=== PATIENT | female | born 1990 | race Caucasian/White ===

== ENCOUNTER 2016-10-21 19:07 | Emergency (ER) | payer MEDICAID ==
[2016-10-21 19:15] VITALS: TEMP 98.1
--- NOTE | 2016-10-21 19:59 | EDPHY ---
H & P Time Seen by Provider: 10/21/16 19:24 HPI/ROS: CHIEF COMPLAINT: Abdominal pain HISTORY OF PRESENT ILLNESS: 26-year-old female presents to the emergency department with right-sided abdominal pain for several weeks. The patient states her last menstrual period was 07/17/2016. [facility] She has had no vaginal bleeding or spotting. She is 5 para 2 AB 2. No back pain. No urinary symptoms. No chest pain or difficulty breathing. No headache. No reported trauma. REVIEW OF SYSTEMS: Constitutional: No fever, no chills. Eyes: No double or blurry vision. ENT: No sore throat. Respiratory: No cough, no shortness of breath. Cardiac: No chest pain. Gastrointestinal: Abdominal pain as above. No vomiting or diarrhea Genitourinary: No dysuria. Musculoskeletal: No neck or back pain. Skin: No rashes. Neurological: No headache. Past Medical/Surgical History: [id number] Social History: Single Smoking Status: Light smoker Physical Exam: General Appearance: Alert, no distress. Eyes: Pupils equal and round. Extraocular motions are all intact. ENT: Mouth: Mucous membranes moist. Respiratory: No wheezing, rhonchi, or rales, lungs are clear to auscultation. Cardiovascular: Regular rate and rhythm. Gastrointestinal: Abdomen is soft. She has mild tenderness with palpation in the suprapubic area. No rebound, guarding or masses noted. Gravid uterus palpated. No CVA tenderness bilaterally. Neurological: Alert and oriented x 3, cranial nerves II through XII grossly intact Skin: Warm and dry, no rashes. Musculoskeletal: Nontender to palpate along the cervical, thoracic or lumbar spine. Neck is supple. Extremities: Full range of motion and no peripheral edema. Psychiatric: Patient is oriented X 3, there is no agitation. Constitutional: Initial Vital Signs Temperature (C) 36.7 C 10/21/16 19:11 Heart Rate 90 10/21/16 19:11 Respiratory Rate 16 10/21/16 19:11 Blood Pressure 131/82 H 10/21/16 19:11 O2 Sat (%) 98 10/21/16 19:11 O2 Delivery Mode Room Air Allergies/Adverse Reactions: No Known Allergies Allergy (Unverified 02/15/15 19:37) Home Medications: Medication Instructions Recorded NK [No Known Home Meds] 10/21/16 Medical Decision Making - Diagnostics Imaging Results: Imaging Impressions Abdomen Ultrasound 10/21/16 19:56 Impression: Appendix not identified. Findings and recommendations discussed with Emergency Department physician, OWEN JEREZ at 2050 hour, 10/21/2016. Final report concurs with initial preliminary interpretation. Obstetrics Ultrasound 10/21/16 19:56 Impression: 1. Single viable intrauterine gestation with size consistent with LMP dates. 2. FHR = 142 BPM. 3. Recommend followup anatomy scan between 19 and 20 weeks gestation. 4. No ovarian torsion or adnexal masses. Findings and recommendations discussed with Emergency Department physician, OWEN JEREZ at 2050 hour, 10/21/2016. Final report concurs with initial preliminary interpretation. Imaging: Discussed imaging studies w/ scallop raker Radiologist ED Course/Re-evaluation: Past records were reviewed and the patient's blood type is O-positive. This test was not repeated in the emergency department. Laboratory studies are within normal limits. Quantitative HCG is over 39,000. Pelvic ultrasound reveals a 14 week 1 day IUP with a heart rate of 142. Unable to visualize appendix. Patient was given OBGYN referral. She was encouraged to stop smoking and take vitamins. She was instructed to return to the emergency department if she developed any other change in symptoms or if she felt worse in any way. Differential Diagnosis: Including but not limited intrauterine , ectopic , acute appendicitis, urinary tract infection, pyelonephritis, ovarian cyst, ovarian torsion - Data Points Laboratory Results: Laboratory Results 10/21/16 19:30 10/21/16 19:30 10/21/16 10/21/16 10/21/16 20:06 19:30 19:30 WBC 8.08 10^3/uL 10^3/uL (3.80-9.50) RBC 4.19 10^6/uL 10^6/uL (4.18-5.33) Hgb 13.1 g/dL g/dL (12.6-16.3) Hct 37.3 % L % (38.0-47.0) MCV 89.0 fL fL (81.5-99.8) MCH 31.3 pg pg (27.9-34.1) MCHC 35.1 g/dL g/dL (32.4-36.7) RDW 12.1 % % (11.5-15.2) Plt Count 241 10^3/uL 10^3/uL (150-400) MPV 9.8 fL fL (8.7-11.7) Neut % (Auto) 63.7 % % (39.3-74.2) Lymph % (Auto) 28.3 % % (15.0-45.0) [place] % (Auto) 5.4 % % (4.5-13.0) Eos % (Auto) 2.0 % % (0.6-7.6) Baso % (Auto) 0.4 % % (0.3-1.7) Nucleat RBC Rel Count 0.0 % % (0.0-0.2) Absolute Neuts (auto) 5.14 10^3/uL 10^3/uL (1.70-6.50) Absolute Lymphs (auto) 2.29 10^3/uL 10^3/uL (1.00-3.00) Absolute Monos (auto) 0.44 10^3/uL 10^3/uL (0.30-0.80) Absolute Eos (auto) 0.16 10^3/uL 10^3/uL (0.03-0.40) Absolute Basos (auto) 0.03 10^3/uL 10^3/uL (0.02-0.10) Absolute Nucleated RBC 0.00 10^3/uL 10^3/uL (0-0.01) Immature Gran % 0.2 % % (0.0-1.1) Immature Gran # 0.02 10^3/uL 10^3/uL (0.00-0.10) Sodium 136 mEq/L mEq/L (134-144) Potassium 3.2 mEq/L L mEq/L (3.5-5.2) Chloride 107 mEq/L mEq/L (97-110) Carbon Dioxide 18 mEq/l L mEq/l (22-31) Anion Gap 11 mEq/L mEq/L (8-16) BUN 7 mg/dL mg/dL (7-23) Creatinine 0.4 mg/dL L mg/dL (0.6-1.0) Estimated GFR > 60 Glucose 90 mg/dL mg/dL (70-100) Calcium 9.4 mg/dL mg/dL (8.5-10.4) Beta HCG, Quant 34892.00 mIU/mL H mIU/mL (0.00-4.83) Urine Color YELLOW Urine Appearance MODERATELY TURBID Urine pH 6.0 (5.0-7.5) Ur Specific [place] 1.017 (1.002-1.030) Urine Protein NEGATIVE (NEGATIVE) Urine Ketones NEGATIVE (NEGATIVE) Urine Blood NEGATIVE (NEGATIVE) Urine Nitrate NEGATIVE (NEGATIVE) Urine Bilirubin NEGATIVE (NEGATIVE) Urine Urobilinogen NEGATIVE EU EU (0.2-1.0) Ur Leukocyte Esterase NEGATIVE (NEGATIVE) Urine RBC 1-3 /hpf /hpf (0-3) Urine WBC 1-3 /hpf /hpf (0-3) Ur Epithelial Cells TRACE /lpf /lpf (NONE-1+) Urine Bacteria 1+ /hpf H /hpf (NONE SEEN) Urine Mucus TRACE /lpf /lpf (NONE-1+) Urine Glucose NEGATIVE (NEGATIVE) Departure - Departure Disposition: Home, Routine, Self-Care Clinical Impression: Intrauterine Condition: Good Instructions: (ED) Additional Instructions: Stop smoking. You should be taking vitamins daily. Follow up with WEB PAGE DEVELOPER as discussed. Abdominal Pain: Return to the Emergency Department immediately for increasing pain, fever, vomiting, or if not completely better in 8-12 hours. Referrals: Analisa King DO [Doctor of Osteopathy] - 2-3 days, call for appt. (OBGYN on- call)
[2016-10-21 20:09] LABS: % IMMATURE GRANULYOCYTES 0.2 % (0.0-1.1); ABSOLUTE IMMATURE GRANULOCYTES 0.02 10^3/uL (0.00-0.10); ADD DIFF? NO; ADD MORPH? NO; ADD SCAN? NO; ATYPICAL LYMPHOCYTE FLAG 0 (0-99); FRAGMENT RBC FLAG 0 (0-99); HEMATOCRIT 37.3 % (38.0-47.0); HEMOGLOBIN 13.1 g/dL (12.6-16.3); LEFT SHIFT FLG 0 (0-99); LIPEMIA HEMOLYSIS FLAG 90 (0-99); MEAN CELL HEMOGLOBIN 31.3 pg (27.9-34.1); MEAN CELL HEMOGLOBIN CONCENTR. 35.1 g/dL (32.4-36.7); MEAN PLATELET VOLUME 9.8 fL (8.7-11.7); PLATELET CLUMPS FLAG 0 (0-99); PLATELET COUNT 241 10^3/uL (150-400); RED BLOOD CELL COUNT 4.19 10^6/uL (4.18-5.33); RED CELL DISTRIBUTION WIDTH 12.1 % (11.5-15.2)
[2016-10-21 20:16] LABS: ANION GAP 11 mEq/L (8-16); CALCIUM 9.4 mg/dL (8.5-10.4); CARBON DIOXIDE 18 mEq/l (22-31); CHLORIDE 107 mEq/L (97-110); CREATININE 0.4 mg/dL (0.6-1.0); GLOMERULAR FILTRATION RATE > 60; GLUCOSE 90 mg/dL (70-100); POTASSIUM 3.2 mEq/L (3.5-5.2); SODIUM 136 mEq/L (134-144)
[2016-10-21 20:21] LABS: COLOR YELLOW; LEUKOCYTE ESTERASE,URINE NEGATIVE (NEGATIVE); NITRITE,URINE NEGATIVE (NEGATIVE)
[2016-10-21 20:26] LABS: BACTERIA 1+ /hpf (NONE SEEN); MUCUS TRACE /lpf (NONE-1+)
[2016-10-21 21:40] VITALS: BP 110/62; PULSE 63; RESP 14; O2SAT 96
== END 2016-10-21 21:32 | disposition home or self-care (01) ==
DX: O26.892 Other specified pregnancy related conditions, second trimester (principal); R10.9 Unspecified abdominal pain; F17.200 Nicotine dependence, unspecified, uncomplicated; Z3A.14 14 weeks gestation of pregnancy

== ENCOUNTER → 2017-02-05 | Outpatient (CLI) | payer MEDICAID | LOC: FIMAGING 13:26 | PROVIDERS: ATTEND Obstetrics & Gynecology | DX: O09.293 Supervision of pregnancy with other poor reproductive or obstetric history, third trimester (principal); Z3A.28 28 weeks gestation of pregnancy ==

== ENCOUNTER 2017-03-06 16:12 | Observation (INO) | payer MEDICAID ==
--- NOTE | 2017-03-06 19:54 | GHP ---
[f rep st] HISTORY AND PHYSICAL DATE OF ADMISSION: 03/06/2017 ADMITTING DIAGNOSIS: 1. Intrauterine at 32 weeks and 4 days. 2. contractions. HISTORY OF PRESENT ILLNESS: The patient is a 26-year-old, 6, para 2-1-2 -2, at 32 weeks and 4 days by last menstrual period 07/20/2016, with estimated due date 04/27/2017 and c/w 13-week scan performed during ED visit at [facility]. The patient presents to the office today for NST. NST is nonreactive with only 1 acceleration, no decels, moderate variability. On toco, she is lenore every 3-4 minutes and states pain is a 6 to 7/10 on pain scale. The patient denies any leakage of fluid or vaginal bleeding. States good movement. The patient denies any abnormal discharge, and feels that she is well hydrated. The patient was sent over to Labor and Delivery to rule out contractions. The patient has care at [facility]. is complicated by late care at 22 weeks and 5 days. The patient has a history of a delivery at 35 weeks secondary to PPROM. She also has a history of intrauterine demise in 2013 secondary to cord accident. She declined 17-P injections for this . She declined all genetic screening. Positive tobacco use during the . Down to 5-6 cigarettes per day. She does live an hour away at 8700 feet. Patient has a history of hypothyroidism, currently on no meds. The patient did have a recent visit with [facility] on 02/05 and fetus was measuring appropriate for gestational age with estimated weight 88th percentile, 1470 g. Cervix was 3.2 cm, transvaginally, with a MVP of 5.8 cm and a posterior placenta; no previa. PAST OB HISTORY: In 2009, she had a 1st trimester missed AB, treated with D and C. In 2010, she had a term delivery at 42 weeks to a viable female infant weighing 5 pounds 12 ounces. In 2013, she had a term intrauterine demise at 39 and 5 weeks. Male infant weighing 6 pounds 1 ounce. Suspected cord accident as cause for stillbirth, delivery at [facility] by fit model. In July 2015, delivery was complicated by PPROM at 35 weeks followed immediately by delivery. Viable female infant, weighing 4 pounds 5 ounces. Additionally, placental abruption was diagnosed at delivery based on heart tone during 2nd stage of labor and appearance of placenta at time of delivery. PAST HAND FRAME SURGICAL ELASTIC KNITTER HISTORY: Age of menarche 14. Cycles every 28 days. LMP 07/20/2016. Positive test middle of April 2016. The patient denies a history of abnormal Pap smears or exposure to chlamydia or gonorrhea. 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 Cold sore about 9 years ago, but no history of genital lesions. Does have a history of genital warts, HPV. CURRENT MEDICATIONS: Include vitamins. ALLERGIES: No known drug allergies. PAST MEDICAL HISTORY: Remarkable for hyperthyroidism, pyelonephritis in 2013, history of frequent UTIs. 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 PAST SURGICAL HISTORY: TAB in 2008. D and C in 2008. She had full body cast after being bucked off a horse 4 years ago and hospitalized for 2 months. PAST FAMILY HISTORY: Mother with Alzheimer's dementia. Maternal grandmother with type 2 diabetes, COPD. SOCIAL HISTORY: The patient is . She lives with her and their 3 children. 2 daughters and a son. 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 She endorses tobacco use, 5-6 cigarettes a day. Denies any use of illicit drug use or alcohol use. LABS: O positive, antibody negative, RPR nonreactive. Rubella immune. Hepatitis B surface antigen negative. HIV negative. She declined trio screen, standard panel. TSH 0.363. Free T4 0.80. Urine culture negative. Pap, gonorrhea, and chlamydia cultures all negative. Declined all genetic testing. Do not have results of a 1-hour Glucola or H and H yet. REVIEW OF SYSTEMS: A 10-point review of systems is negative. Pertinent positives as noted in HPI. PHYSICAL EXAMINATION: VITAL SIGNS: On admission, stable. Patient is afebrile. GENERAL: Well-nourished, well-developed female. Alert, oriented x3. Mild distress secondary to contractions. CARDIOVASCULAR: Regular rate and rhythm. LUNGS: Clear to auscultation bilaterally. ABDOMEN: Gravid. Soft. Nontender. PELVIC: She is noted to be about 0.5cm dilated, 40% effaced, posterior. EXTREMITIES: Normal to inspection without calf tenderness or edema. heart tones: Category 1 tracing. Baseline: 140 beats per minute. Positive accelerations. No deceleration. Moderate variability. On toco, she is lenore every 3-4 minutes. ASSESSMENT: The patient is a 26-year-old, 6, para 2-1-2-2, at 32 weeks and 4 days by 13 week ultrasound with contractions. 1. Admit to Labor and Delivery for observation. 2. FFN was collected and found to be negative; GBS culture collected and results are pending. 3. Nonstress test and continuous toco. 4. Tocolytics as needed - will start with Procardia. 5. Discussed with FOREIGN STUDENT ADVISER and will give first dose of betamethasone this evening and repeat in 24 hours. 6. Consider consult with Maternal Medicine in the morning for u/s for EFW and CL. /[id number]/MODL MTDD
[2017-03-06] MEDS: LR 1,000 ML IV SCH ×2 (20:55→21:37)
[2017-03-06] MEDS ORDERED: LR 500 ML IV ONE (21:00)
[2017-03-06] MEDS ORDERED: TERBUTALINE SULFATE 1 MG/ML VIAL SC ONE (21:00)
[2017-03-06] MEDS ORDERED: BETAMETHASONE IM SYRINGE IM SCH (21:00)
[2017-03-06] MEDS ORDERED: NIFEdipine 10 MG CAP PO SCH (21:00)
[2017-03-06] MEDS ORDERED: TERBUTALINE SULFATE 1 MG/ML VIAL SC PRN (21:30)
[2017-03-06] MEDS ORDERED: NIFEdipine 10 MG CAP PO ONE (21:30)
[2017-03-06] MEDS ORDERED: NIFEdipine 10 MG CAP PO PRN (22:00)
[2017-03-07] MEDS ORDERED: NIFEdipine 10 MG CAP PO SCH (01:30)
[2017-03-07] MEDS ORDERED: NIFEdipine 10 MG CAP PO PRN (05:41)
[2017-03-07] MEDS: NIFEdipine 10 MG CAP PO PRN ×2 (07:30→13:40)
--- NOTE | 2017-03-07 12:43 | OBPROG ---
Labor Progress Note Assessment/Plan: Assessment: IUP at 32w5d with ctxns Threatened PTL but cx stable since yesterday and ctxns lessened by procardia - BMZ x1 last noc at 2100 hx of PTD at 35 wks hx of IUFD Plan: repeat BMZ tonight for full course. cont procardia for symptomatic relief 03/07/17 12:38 Subjective/Intrapartum Course: 03/07/17 12:41 LATE NOTE - PT SEEN AND EXAMINED THIS AM AT 10:00 Pt reports sleeping ok - did have ctxns increase this am and got procardia a bit after 7a. We disc increasing po fluids. had nausea after breakfast that pt didn't like. urinating fine. no dysuria. GFM and reactive pattern on NSTs. Going to see MFM for growth and cx length today. Recheck of cx is 50/- 2 vtx - SVE Dilation (cm): 1 Effacement (%): 50 Station: -2 Membranes: Intact - Contraction Pattern Assessment Current Contraction Pattern: Irregular - FHR Assessment Holder FHR (bpm): 130 FHR Pattern Variability: Moderate FHR Category: 1 Oxytocin Orders Assessment - Pre-Induction/Augmentation Assessment Gestational Age: 32 week(s) and 4 day(s) ICD10 Worksheet Patient Problems: Problems Problem Status Onset uterine contractions in third trimester, antepartum Acute
== END 2017-03-07 14:10 | disposition home or self-care (01) ==
LOC: FLD 16:12
PROVIDERS: ADMIT Obstetrics & Gynecology; ATTEND Obstetrics & Gynecology
DX: O60.03 Preterm labor without delivery, third trimester (principal); O09.213 Supervision of pregnancy with history of pre-term labor, third trimester; O09.293 Supervision of pregnancy with other poor reproductive or obstetric history, third trimester; F17.210 Nicotine dependence, cigarettes, uncomplicated; E03.9 Hypothyroidism, unspecified; Z3A.32 32 weeks gestation of pregnancy
CPT/HCPCS: 59025; 76816; G0378; J0702

== ENCOUNTER 2017-03-07 20:20 | Observation (INO) | payer MEDICAID ==
[2017-03-07] MEDS ORDERED: BETAMETHASONE IM SYRINGE IM ONE (20:26)
== END 2017-03-07 20:45 | disposition home or self-care (01) ==
LOC: FLD 20:20
PROVIDERS: ADMIT Advanced Practice Midwife; ATTEND Advanced Practice Midwife
DX: O60.03 Preterm labor without delivery, third trimester (principal)
CPT/HCPCS: J0702

== ENCOUNTER 2017-03-08 16:45 | Observation (INO) | payer MEDICAID ==
[2017-03-08] MEDS ORDERED: NIFEdipine 10 MG CAP PO SCH (18:00)
--- NOTE | 2017-03-08 21:05 | GHP ---
[f rep st] PREOP HISTORY AND PHYSICAL DATE OF ADMISSION: 03/08/2017 ADMITTING DIAGNOSIS: Intrauterine at 32-6/7 weeks' gestation with labor contractio ns. HISTORY OF PRESENT ILLNESS: The patient is a 26-year-old 6, para 2-1-2-2 who is 32-6/7 weeks ' gestation by her last menstrual period of 07/20/2016 with an EDC of 04/27/2016, consistent with a 1 3-week ultrasound. The patient has a that is complicated by a history of delivery and a history of a term intrauterine demise. She has been followed in our office very closely with nonstress test. On her nonstress test today, she had contractions every 2 minutes that were increasing in pain. She had just been seen in labor and delivery on the , admitted from the to the for the same co mplaints. At that time, she had an evaluation with a fibronectin that was negative. A urinaly sis that was contaminated but was negative for infection, and a maternal medicine consult that demonstrated the baby was well grown and her cervical length was 2.1 cm. She was placed on oral Proc ardia for symptomatic management and discharged home. Today, her contractions had increased on the monitor. Cervical evaluation digitally was 2 cm. The c ervix was 3 cm long. That was a change from her prior previously documented cervical exam. Therefor e, she was taken to labor and delivery for continuous monitoring. On the monitor, her heart to sherry remained 140s, reactive, moderate in variability, category 1. She had irregular rare contraction s that spaced out with hydration and rest, and repeat cervical exam was stable. Repeat urinalysis wa s negative, and she was discharged home with labor contractions to continue her Procardia 20 mg every 4-6 hours p.r.n. symptomatic management for her contractions. She has careful monitoring in our office with nonstress test twice weekly, scheduled for next week. /[id number]/MODL
[2017-03-09] MEDS ORDERED: NIFEdipine 10 MG CAP PO SCH (06:00)
== END 2017-03-08 21:38 | disposition home or self-care (01) ==
LOC: FLD 16:45
PROVIDERS: ADMIT Obstetrics & Gynecology; ATTEND Obstetrics & Gynecology
DX: O60.03 Preterm labor without delivery, third trimester (principal); O09.293 Supervision of pregnancy with other poor reproductive or obstetric history, third trimester; O09.213 Supervision of pregnancy with history of pre-term labor, third trimester; Z3A.32 32 weeks gestation of pregnancy
CPT/HCPCS: 59025; G0378

== ENCOUNTER 2017-04-17 02:18 | Inpatient (IN) | payer MEDICAID ==
[2017-04-17] MEDS ORDERED: HYDROCODONE/APAP 5/325 TAB PO PRN (03:18)
[2017-04-17] MEDS ORDERED: SIMETHICONE 80 MG TAB CHEW PO PRN (03:18)
[2017-04-17] MEDS ORDERED: ACETAMINOPHEN 325 MG TAB PO PRN (03:18)
[2017-04-17] MEDS ORDERED: HYDROCORTISONE 0.5% CREAM TP PRN (03:18)
[2017-04-17] MEDS ORDERED: TERBUTALINE SULFATE 1 MG/ML VIAL IV PRN (03:24)
[2017-04-17] MEDS ORDERED: MISOPROSTOL 200 MCG TAB PR PRN (03:24)
[2017-04-17] MEDS ORDERED: OXYTOCIN 20 UNIT in LR 1,000 ML IV PRN (03:24)
[2017-04-17] MEDS ORDERED: OLIVE OIL 118 ML BTL MISC PRN (03:24)
[2017-04-17] MEDS ORDERED: EPSOM SALT 454 GM TP PRN (03:24)
[2017-04-17] MEDS ORDERED: LR 1,000 ML IV PRN (03:24)
--- NOTE | 2017-04-17 03:24 | OBDEL ---
Info Type: Vaginal Presentation at Delivery: Vertex L&D Analgesia/Anesthesia Type: None GBS+: No - Care Provider Senior Producer/ENTERPRISE APPLICATIONS MANAGER: Yudi Mullen Indications for Delivery: Spontaneous Labor, SROM Vaginal Delivery - Delivery Provider Delivery Physician/CNM: Isa Lobato - Labor and Delivery Onset of Contractions Date: 04/16/17 Onset of Contractions Time: 21:00 Onset of Contractions Type: Spontaneous Rupture of Membranes Date: 04/17/17 Rupture of Membranes Time: 00:30 Rupture of Membranes Type: Spontaneous Amniotic Fluid Color: Thick Meconium Dilation Complete Date: 04/17/17 Dilation Complete Time: 02:40 Placenta Delivery Date: 04/17/17 Placenta Delivery Time: 03:01 Total Hours of Labor: 6 Laceration: Other (Specify) (none, intact perineum) Vaginal Sponge Count Correct: Yes Vaginal Needle Count Correct: Yes Vaginal Sweep Performed: No EBL: 150 Delivery Events: Nuchal Cord (tight x 1) - Medications Labor Augmentation/Induction Methods Used: None Data ALLAN: 04/27/17 Gestational Age: 38 week(s) and 4 day(s) Holder Delivery Date: 04/17/17 Delivery Time: 02:58 Sex of : Male Score (1 Min): 8 Score (5 Min): 9 ICD10 Worksheet Patient Problems: Problems Problem Status Onset uterine contractions in third trimester, antepartum Acute (spontaneous vaginal delivery) Acute - ICD10 Problem Qualifiers (1) (spontaneous vaginal delivery)
--- NOTE | 2017-04-17 03:41 | GHP ---
[f rep st] PREOP HISTORY AND PHYSICAL DATE OF ADMISSION: 04/17/2017 ADMISSION DIAGNOSIS: Intrauterine at 38-4/7 weeks' gestation in spontaneous labor with spontaneous rupture of the membranes. HISTORY OF PRESENT ILLNESS: The patient is a 27-year-old 6, para 2-1-2- 2 with a last menstrual period of 07/20/2016 and EDC of 04/27/2017, which was confirmed by a 22 week ultrasound. She has had good care at [facility] since she registered at 22 weeks. She had late care. She began having contractions on the evening of the , had spontaneous rupture of the membranes, and presented to labor and delivery at 8 cm with thick meconium. She quickly progressed to fully dilated and delivered a viable male without complication. The patient's risk factors, she is a smoker. She had late care at 22 weeks. She has hyperthyroid. She has a history of a delivery after premature rupture of membranes and labor at 35 weeks. She also has a history of a 39 week intrauterine demise, and she is rubella nonimmune. The patient was offered Lutz during this for prevention of labor, and she declined. She has had normal labs in this , normal ultrasounds, and she has progressed to 38 weeks. PAST OB HISTORY: In March 2008, she had an elective termination. In July of 2008, she had a spontaneous with D and C. in April 2010, she had a viable female at 42 weeks of 5 pounds 12 ounces. In December 2013, she had a male 6 pounds 9 ounces term intrauterine demise with a cord accident. In July of 2015, she had a viable female, 4 pounds 9 ounces, 35 weeks, delivery, premature rupture of the membranes and had a partial abruption , and then this is her current . PAST MEDICAL HISTORY: She has no significant past medical issues. PAST SURGICAL HISTORY: The termination and the D and C. she had a hospitalization when she was a young child because she had a horse injury and was hospitalized at age 4, and she is hyperthyroid. She has a history of depression. GBS negative. ALLERGIES: She has no known drug allergies. MEDICATIONS: Only include vitamins. LABORATORY DATA: She is O positive. Antibody negative. RPR nonreactive. Rubella low immune. Hepatitis negative. HIV negative. She declined genetic screening tests. 1-hour GTT was normal. GBS is negative. SOCIAL HISTORY: She lives with her and her 2 children. She is . She is a smoker. She denies alcohol and drug use. 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 FAMILY HISTORY: Paternal grandfather had coronary artery disease. Father and brother have asthma. Mother has COPD. Her mother and maternal grandmother are type 2 diabetics. Her sister and her mother have hypothyroidism. Paternal grandmother had a stroke. Mother has Alzheimer and dementia for the past 5 years. OBJECTIVE: Patient presented afebrile. Vital signs are stable. heart tones were in the 70s to 80s, moderate variability, had accelerations to the 100s. She was pushing actively on presentation, and she delivered atraumatically. Baby had a nuchal cord. ASSESSMENT/PLAN: A 27-year-old 6, para 2-1-2-2, at 38-3/7 weeks' gestation in spontaneous active labor with spontaneous vaginal delivery without complication. /[id number]/MODL MTDD
[2017-04-17 03:49] LABS: PLATELET COUNT 228 10^3/uL (150-400)
[2017-04-17] MEDS: IBUPROFEN 600 MG TAB PO PRN ×4 (04:05→23:24)
[2017-04-17] MEDS ORDERED: DIPHENOXYLATE/ATROPINE LOMOTIL 1 TAB PO PRN (09:41)
[2017-04-17] MEDS: DOCUSATE SODIUM 100 MG CAP PO PRN (10:26)
--- NOTE | 2017-04-17 15:36 | OBPP ---
Progress Note Assessment/Plan: Assessment: PPD 1/2 s/p Plan: routine care 04/17/17 15:33 Subjective/ Course: 04/17/17 15:33 Pt doing well. Bld is moderate - mod cramps and using ibu. urinating fine. baby has latched ok. pt is tired Objective: 04/17/17 02:40 Patient ABO/Rh O POSITIVE 04/17/17 02:40 Temp Pulse Resp BP Pulse Ox 36.3 C 81 20 113/70 96 04/17/17 08:00 04/17/17 08:00 04/17/17 08:00 04/17/17 08:00 04/17/17 06:00 Uterine Position/Fundal Height: Umbilicus -1 Uterine Tone: Firm Physical Exam - Physical Exam Abdomen: non-tender, soft, other (FF at umb -1) Extremities: non-tender, pedal edema (minimal) Skin: normal color, warm/dry Neuro/Psych: alert, normal mood/affect
[2017-04-18] MEDS: IBUPROFEN 600 MG TAB PO PRN (08:32)
--- NOTE | 2017-04-18 19:32 | OBPP ---
Progress Note Assessment/Plan: Assessment: 27-year-old s/p PPD#1 Plan: routine PP care cont ambulate/hydrate plan to d/c home tomorrow 04/18/17 19:30 04/18/17 19:32 Subjective/ Course: 04/17/17 15:33 Pt doing well. Bld is moderate - mod cramps and using ibu. urinating fine. baby has latched ok. pt is tired 04/18/17 19:31 Patient doing well. She denies any pain or heavy bleeding. She is ambulating and voiding without difficulty. She is well. Objective: 04/17/17 02:40 Patient ABO/Rh O POSITIVE 04/17/17 02:40 Temp Pulse Resp BP Pulse Ox 36.5 C 70 16 99/64 L 96 04/18/17 08:35 04/18/17 08:35 04/18/17 08:35 04/18/17 08:35 04/18/17 08:35 Uterine Position/Fundal Height: Umbilicus -2, Midline Uterine Tone: Firm Physical Exam - Physical Exam General Appearance: WD/WN, alert, no apparent distress Neck: supple Abdomen: non-tender, soft Extremities: non-tender, normal inspection Skin: normal color, warm/dry Neuro/Psych: no motor/sensory deficits, alert, normal mood/affect, oriented x 3
[2017-04-18 20:15] VITALS: O2SAT 95
[2017-04-19] MEDS: IBUPROFEN 600 MG TAB PO PRN ×2 (03:20→08:52)
[2017-04-19 08:37] VITALS: BP 102/67; PULSE 58; RESP 19; TEMP 97.6
[2017-04-19] MEDS: DOCUSATE SODIUM 100 MG CAP PO PRN (08:52)
--- NOTE | 2017-04-19 11:47 | OBPP ---
Progress Note Assessment/Plan: Assessment: Plan: Subjective/ Course: 04/17/17 15:33 Pt doing well. Bld is moderate - mod cramps and using ibu. urinating fine. baby has latched ok. pt is tired 04/18/17 19:31 Patient doing well. She denies any pain or heavy bleeding. She is ambulating and voiding without difficulty. She is well. Objective: 04/17/17 06:00 Patient ABO/Rh O POSITIVE 04/17/17 02:40 Temp Pulse Resp BP Pulse Ox 36.4 C 58 L 19 102/67 95 04/19/17 08:00 04/19/17 08:00 04/19/17 08:00 04/19/17 08:00 04/19/17 08:00
--- NOTE | 2017-04-19 11:48 | OBGCSDC ---
General Delivery Information - General Info : 6 Para: 4 Abortions: 1 Type: Vaginal L&D Analgesia/Anesthesia Type: None Admission Date: 04/17/17 Labs: Patient ABO/Rh O POSITIVE 04/17/17 02:40 Hct 45.5 % (38.0-47.0) 04/17/17 06:00 - Hospital Course : 04/17/17 15:33 Pt doing well. Bld is moderate - mod cramps and using ibu. urinating fine. baby has latched ok. pt is tired 04/18/17 19:31 Patient doing well. She denies any pain or heavy bleeding. She is ambulating and voiding without difficulty. She is well. Vaginal - Delivery Provider Delivery Physician/CNM: Isa Lobato - Diagnosis Labor: Spontaneous Rupture of Membranes Type: Spontaneous Amniotic Fluid Color: Thick Meconium Laceration: Other (Specify) (none, intact perineum) Delivery Events: Nuchal Cord (tight x 1) - Delivery EBL: 150 [place] Data ALLAN: 04/27/17 Gestational Age: 38 week(s) and 6 day(s) Holder Delivery Date: 04/17/17 Delivery Time: 02:58 Sex of Infant: Male Score (1 Min): 8 Score (5 Min): 9
== END 2017-04-17 14:00 | disposition home or self-care (01) | DRG 775 ==
LOC: FLD 02:18 → FOB 05:37
PROVIDERS: ADMIT Obstetrics & Gynecology; ATTEND Obstetrics & Gynecology
PROC: 10E0XZZ Delivery of Products of Conception, External Approach (ICD-10-PCS; principal; 2017-04-17)
DX: O99.284 Endocrine, nutritional and metabolic diseases complicating childbirth (principal); O69.81X0 Labor and delivery complicated by cord around neck, without compression, not applicable or unspecified; Z37.0 Single live birth; O99.334 Smoking (tobacco) complicating childbirth; E03.9 Hypothyroidism, unspecified; Z3A.38 38 weeks gestation of pregnancy

== ENCOUNTER 2018-01-16 19:19 | Emergency (ER) | payer MEDICAID ==
--- NOTE | 2018-01-16 19:38 | EDPHY ---
H & P Stated Complaint: "L RIB PAIN LINGERING AFTER COLD"/X 3 WKS Time Seen by Provider: 01/16/18 19:38 HPI/ROS: HPI CHIEF COMPLAINT: Left-sided rib pain. HISTORY OF PRESENT ILLNESS: This is a 27-year-old female she is otherwise healthy without any significant medical history presents emergency room left- sided rib pain. The patient denies any trauma. It is worse when she takes deep breath in. Sharp stabbing. Left lateral lower ribs. No abdominal pain. She was sick with an upper respiratory tract infection with coughing for the past 2-3 weeks. She has had this discomfort for 3 weeks. However it has gotten worse. No hemoptysis. The patient denies any history of PE or DVT. Not on control. However does smoke a half pack per day. Past Medical History: No significant medical history Past Surgical History: No significant surgical history Social History: Denies drugs alcohol, smokes half pack per day. Family History: Noncontributory ROS REVIEW OF SYSTEMS: 10 Systems were reviewed and negative with the exception of the elements mentioned in the history of present illness. Exam Constitutional triage nursing summary reviewed, vital signs reviewed, awake/ alert. Eyes normal conjunctivae and sclera, EOMI, PERRLA. HENT normal inspection, atraumatic, moist mucus membranes, no epistaxis, neck supple/ no meningismus, no raccoon eyes. Respiratory clear to auscultation bilaterally, normal breath sounds, no respiratory distress, no wheezing. Cardiovascular chest wall: Mild tender palpation left lateral chest wall. No crepitus. rate normal, regular rhythm, no murmur, no edema, distal pulses normal. Gastrointestinal soft, non-tender, no rebound, no guarding, normal bowel sounds, no distension, no pulsatile mass. Genitourinary no CVA tenderness. Musculoskeletal no midline vertebral tenderness, full range of motion, no calf swelling, no tenderness of extremities, no meningismus, good pulses, neurovascularly intact. Skin pink, warm, & dry, no rash, skin atraumatic. Neurologic awake, alert and oriented x 3, AAOx3, moves all 4 extremities equally, motor intact, sensory intact, CN II-XII intact, normal cerebellar, normal vision, normal speech. Psychiatric normal mood/affect. Heme/Lymph/Immune no lymphadenopathy. Differential diagnosis includes but is not limited to: Rib fractures, rib contusion, rib strain, pleurisy, pneumonia, PE, pneumothorax Medical Decision Making: Plan for this patient young 27-year-old female with left-sided pleuritic pain no PE risk factors except for tobacco use plan for two view chest x-ray, D-dimer, basic blood work, and re-evaluate. Re-evaluation: Patient D-dimer noted to be negative. Patient had a two view chest x-ray this is negative for acute cardiopulmonary disease. No evidence of rib fractures or pneumothorax. This images reviewed by myself. 2100: Patient re-evaluated this time she is resting comfortably. I do recommend she refrain from smoking tobacco. Anti-inflammatory pain medicine. Chest x-rays reviewed shows no acute cardiopulmonary disease. Symptoms are consistent most likely musculoskeletal rib pain. The patient's D-dimer is negative. I think pulmonary embolism is very unlikely given no hypoxia no tachycardia and negative D-dimer. Return precautions discussed with the patient she is comfortable this plan. Source: Patient - Personal History LMP (Females 10-55): 22-28 Days Ago Current Tetanus Diphtheria and Acellular Pertussis (TDAP): Unsure Tetanus Vaccine Date: 2005 - Medical/Surgical History Hx Asthma: No Hx Chronic Respiratory Disease: No Hx Diabetes: No Hx Cardiac Disease: No Hx Renal Disease: No Hx Cirrhosis: No Hx Alcoholism: No Hx HIV/AIDS: No Hx Splenectomy or Spleen Trauma: No Other PMH: PMHx: benign lumps breasts, [id number] 1 miscarriage and 1 stillbirth, freq UTI and kidney infections (more in preg), ruptured ovarian cyst. 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 PSHx: denies - Social History Smoking Status: Heavy smoker Constitutional: Initial Vital Signs Temperature (C) 37.1 C 01/16/18 19:32 Heart Rate 92 01/16/18 19:32 Respiratory Rate 18 01/16/18 19:32 Blood Pressure 116/73 01/16/18 19:32 O2 Sat (%) 97 01/16/18 19:32 O2 Delivery Mode Room Air Allergies/Adverse Reactions: No Known Allergies Allergy (Verified 04/17/17 03:56) Home Medications: Medication Instructions Recorded Ibuprofen [Motrin (*)] 800 mg PO Q6-8PRN #20 tab 01/16/18 Medical Decision Making - Diagnostics Imaging Results: Imaging Impressions Chest X-Ray 01/16/18 19:39 Impression: Chest negative for acute abnormality. - Data Points Laboratory Results: Laboratory Results 01/16/18 19:45 01/16/18 19:45 01/16/18 01/16/18 01/16/18 19:45 19:45 19:45 WBC 9.16 10^3/uL 10^3/uL (3.80-9.50) RBC 5.13 10^6/uL 10^6/uL (4.18-5.33) Hgb 15.7 g/dL g/dL (12.6-16.3) Hct 45.1 % % (38.0-47.0) MCV 87.9 fL fL (81.5-99.8) MCH 30.6 pg pg (27.9-34.1) MCHC 34.8 g/dL g/dL (32.4-36.7) RDW 11.9 % % (11.5-15.2) Plt Count 274 10^3/uL 10^3/uL (150-400) MPV 9.7 fL fL (8.7-11.7) Neut % (Auto) 57.8 % % (39.3-74.2) Lymph % (Auto) 32.0 % % (15.0-45.0) [place] % (Auto) 4.6 % % (4.5-13.0) Eos % (Auto) 4.5 % % (0.6-7.6) Baso % (Auto) 0.9 % % (0.3-1.7) Nucleat RBC Rel Count 0.0 % % (0.0-0.2) Absolute Neuts (auto) 5.30 10^3/uL 10^3/uL (1.70-6.50) Absolute Lymphs (auto) 2.93 10^3/uL 10^3/uL (1.00-3.00) Absolute Monos (auto) 0.42 10^3/uL 10^3/uL (0.30-0.80) Absolute Eos (auto) 0.41 10^3/uL H 10^3/uL (0.03-0.40) Absolute Basos (auto) 0.08 10^3/uL 10^3/uL (0.02-0.10) Absolute Nucleated RBC 0.00 10^3/uL 10^3/uL (0-0.01) Immature Gran % 0.2 % % (0.0-1.1) Immature Gran # 0.02 10^3/uL 10^3/uL (0.00-0.10) D-Dimer < 0.27 ug/mLFEU ug/mLFEU (0.00-0.50) Sodium 138 mEq/L mEq/L (135-145) Potassium 3.6 mEq/L mEq/L (3.3-5.0) Chloride 108 mEq/L mEq/L (97-110) Carbon Dioxide 21 mEq/l L mEq/l (22-31) Anion Gap 9 mEq/L mEq/L (6-14) BUN 9 mg/dL mg/dL (7-23) Creatinine 0.6 mg/dL mg/dL (0.6-1.0) Estimated GFR > 60 Glucose 99 mg/dL mg/dL (70-100) Calcium 10.3 mg/dL mg/dL (8.5-10.4) Departure - Departure Disposition: Home, Routine, Self-Care Clinical Impression: Rib pain on left side, Pleurisy Condition: Good Instructions: Pleurisy (ED), Rib Contusion (ED) Additional Instructions: 1. Recommend he refrain from smoking. 2. Recommend anti-inflammatory pain medicine alternating Tylenol and Motrin every 6-8 hours. 3. Return to the ER for worsening symptoms. Referrals: NONE *PRIMARY CARE P,. [Primary Care Provider] - As per Instructions Prescriptions: Ibuprofen [Motrin (*)] 800 mg PO Q6-8PRN #20 tab
[2018-01-16 20:08] LABS: PLATELET COUNT 274 10^3/uL (150-400)
[2018-01-16 21:04] VITALS: BP 97/56
== END 2018-01-16 21:04 | disposition home or self-care (01) ==
DX: R07.81 Pleurodynia (principal); R09.1 Pleurisy

== ENCOUNTER 2018-05-03 15:07 | Emergency (ER) | payer MEDICAID | END 2018-05-03 16:27 | disposition home or self-care (01) ==